=== PATIENT | female | born 1995 | race Caucasian/White ===

== ENCOUNTER → 2017-01-01 | Day surgery (SDC) | payer OTHER ==
[2017-01-01] VITALS (9 sets, daily range): BP systolic 98–109; BP diastolic 40–74; PULSE 57–69; TEMP 97.5
[~2017-01-01] VITALS: Ht 157.5 cm; Wt 46.9 kg
[~2017-01-01] MED LIST: NORCO 325 MG-51 TAB PO
[2017-01-01 15:41] LABS: BASO # 0.1 (0.0-0.2); BASO % 0.4 % (0.0-2.0); EOS # 0.4 (0.0-0.7); EOS % 2.6 % (0-4.0); GRAN # 9.8 (1.4-6.5); GRAN % 73.4 % (42.2-75.2); HEMATOCRIT 39.7 % (37.0-47.0); HEMOGLOBIN 13.7 g/dl (12.5-16.0); LYMPH # 2.5 (1.2-3.4); LYMPH % 18.4 % (20.0-51.0); MEAN CELL VOLUME 90 fl (80.0-100.0); MEAN CORPUSCULAR HEMOGLOBIN 31 pg (27.0-31.0); MEAN CORPUSCULAR HGB CONC 35 g/dl (33.0-37.0); MEAN PLATELET VOLUME 9.5 fl (7.4-10.4); MONO # 0.7 (0.1-0.6); MONO % 4.9 % (1.7-9.3); PLATELET COUNT 360 K/mm3 (130-400); WHITE BLOOD COUNT 13.3 K/mm3 (4.8-10.8)
[2017-01-01 15:46] LABS: PH 7 (5-8); URINE APPEARANCE Clear; URINE BACTERIA None Seen /hpf; URINE BILIRUBIN Negative (NEGATIVE); URINE BLOOD 1+ (NEGATIVE); URINE COLOR Yellow; URINE GLUCOSE Negative (NEGATIVE); URINE KETONE Negative (NEGATIVE); URINE UROBILINOGEN Negative (NEGATIVE)
[2017-01-01 15:58] LABS: ADJUSTED CALCIUM 9.2 mg/dL (8.4-10.2); ALBUMIN 5.1 gm/dL (3.5-5.0); BILIRUBIN,TOTAL 0.6 mg/dL (0.0-1.0); C-REACTIVE PROTEIN 0.8 mg/dL (0.0-0.9); CALCIUM 10.1 mg/dL (8.4-10.2); CREATININE, serum 0.67 mg/dL (0.52-1.25); POTASSIUM 3.8 mmol/L (3.4-5.0)
[2017-01-02 02:12] VITALS: BP 88/37; PULSE 56; TEMP 98.2
[2017-01-02 06:04] VITALS: BP 93/89; PULSE 57; TEMP 98
== END ==
LOC: COL.ER 14:02 → SURG 18:23 → COL.ER 18:23 → SDCO 18:23 → SURG 01-02 08:48
PROVIDERS: Nurse Practitioner
DX: K35.80 Unspecified acute appendicitis (principal)
CPT/HCPCS: J0330; J0690; J1100; J1170; J2405; J2704; J2710; J2765; J3010; J7030; J7120; Q9967

== ENCOUNTER 2021-10-21 07:29 | Day surgery (SDC) | payer BC ==
[2021-10-21] VITALS (7 sets, daily range): BP systolic 95–117; BP diastolic 49–73; PULSE 50–75; TEMP 97.6–97.8
[~2021-10-21] VITALS: Ht 157.5 cm; Wt 57.0 kg
--- NOTE | 2021-10-21 10:00 | NUR ---
PT TO BAY 7 PER CART FROM OR. RECEIVED REPORT FROM AIR CONDITIONING SERVICE TECHNICIAN AND RN SECURITY. VS OBATINED. PT REORIENTED TO ROOM AND CALL LIGHT. VERBALIZED UNDERSTANDING. LUNGS CTA. PT REQUESTING WATER TO DRINK. TOLERATING WATER WITHOUT DIFFICULTY. PT C/O CRAMPING. WILL CHECK ORDERS FOR MEDICATION. WILL CONTINUE TO MONITOR.
--- NOTE | 2021-10-21 10:15 | NUR ---
PT C/O CRAMPING. PT CONTINUES TO TOLERATE WATER. DENIES NEEDING ANYTHING AT THIS TIME.
--- NOTE | 2021-10-21 10:18 | NUR ---
TORADOL 30MG GIVEN [place] IV.
--- NOTE | 2021-10-21 10:30 | NUR ---
PT RESTING COMFORTABLY AT THIS TIME. PT STATED PAIN/CRAMPING IS BETTER AT THIS TIME. DENIES ANY NEEDS AT THIS TIME. WILL CONTINUE TO MONITOR PT.
--- NOTE | 2021-10-21 10:45 | NUR ---
PT CONTINUES TO REST COMFORTABLY. DENIES ANY NEEDS AT THIS TIME. WILL CONTINUE TO MONITOR PT.
--- NOTE | 2021-10-21 11:00 | NUR ---
PT RESTING COMFORTABLY. DENIES ANY NEEDS AT THIS TIME. WILL CONTINUE TO MONITOR.
--- NOTE | 2021-10-21 11:45 | NUR ---
PT TOLERATING DIET WITHOUT DIFFICULTY. NEEDING ORDERS FROM DR DEMARCO FOR DISCHARGE. WILL CONTINUE TO MONITOR.
--- NOTE | 2021-10-21 12:15 | NUR ---
ORDERS RECEIVED FROM DR DEMARCO. PT TO DISCHARGE TO HOME.
--- NOTE | 2021-10-21 12:25 | NUR ---
DISCHARGE EDUCATION COMPLETED WITH PT AND HER . PT VERBALIZED UNDERSTANDING OF HOME AND FOLLOW UP CARE. DISCHARGE PAPERWORK GIVEN TO PT. PT SIGNED PAPERWORK.
== END 2021-10-21 12:35 | disposition home or self-care (01) ==
LOC: SDCO 07:29
DX: O02.1 Missed abortion (principal); Z90.89 Acquired absence of other organs; Z79.899 Other long term (current) drug therapy
CPT/HCPCS: J1885; J2405; J2704; J3010; J7120

== ENCOUNTER 2024-03-18 13:03 | Observation (INO) | payer BC ==
[~2024-03-18] VITALS: Ht 157.5 cm; Wt 52.3 kg
[2024-03-18] VITALS (8 sets, daily range): BP systolic 88–98; BP diastolic 41–60; PULSE 56–63; TEMP 98.1
[~2024-03-18 13:03] MED LIST changes: +MOTRIN 800800 MG/TAB PO
[2024-03-18 13:58] LABS: BASO # 0.1 K/mm3 (0.0-0.2); BASO % 0.4 % (0.0-2.0); EOS # 0.1 K/mm3 (0.0-0.7); EOS % 0.7 % (0.0-4.0); GRAN # 10.7 K/mm3 (1.4-6.5); GRAN % 78.2 % (42.2-75.2); HEMATOCRIT 37.3 % (37.0-47.0); HEMOGLOBIN 12.5 g/dl (12.5-16.0); LYMPH # 2.2 K/mm3 (1.2-3.4); LYMPH % 16.4 % (20.0-51.0); MEAN CELL VOLUME 91 fl (80.0-100.0); MEAN CORPUSCULAR HEMOGLOBIN 31 pg (27-31); MEAN CORPUSCULAR HGB CONC 34 g/dl (33.0-37.0); MEAN PLATELET VOLUME 9.2 fl (7.4-10.4); MONO # 0.5 K/mm3 (0.1-0.6); PLATELET COUNT 360 K/mm3 (130-400); RED BLOOD COUNT 4.08 M/mm3 (4.10-5.30); REDCELL DISTRIBUTION WIDTH-CV 12.2 % (11.5-14.5)
[2024-03-18 14:12] LABS: INR 0.9 (0.8-3.0); PROTHROMBIN TIME 10.3 SECONDS (9.7-12.8)
[2024-03-18 14:14] LABS: ALBUMIN 4.3 g/dL (3.5-5.0); BILIRUBIN,TOTAL 0.5 mg/dL (0.2-1.2); CALCIUM 9.7 mg/dL (8.4-10.2); CREATININE, serum 0.77 mg/dL (0.57-1.11); POTASSIUM 3.9 mEq/L (3.5-4.5); TOTAL PROTEIN 7.4 g/dl (6.2-8.1)
[2024-03-18 14:15] LABS: PARTIAL THROMBOPLASTIN TIME 26.9 SECONDS (26.0-37.0)
[2024-03-18] MEDS ORDERED: NS 1,000 ML IV SCH (14:15)
[2024-03-18] MEDS ORDERED: Ondansetron 4 MG/2 ML VIAL ONE (14:35)
[2024-03-18] MEDS ORDERED: Ketorolac 30 MG/ML VIAL ONE (14:35)
[2024-03-18] MEDS ORDERED: fentaNYL 50 MCG/ML 2 ML VIAL ONE (14:35)
[2024-03-18] MEDS ORDERED: Lidocaine PF 2% (20 MG/ML) 5 ML VIAL ONE (14:36)
[2024-03-18] MEDS ORDERED: Ibuprofen 800 MG TAB PO PRN (15:30)
--- NOTE | 2024-03-18 15:49 | NUR ---
Pt arrives to floor via bed from pacu at 1535. Pt awake and alert, denies pain at this time. Recovery VS started. Pt provided water and saltine crackers per her request.
[2024-03-18] MEDS ORDERED: Ondansetron 4 MG/2 ML VIAL IV PRN (16:00)
[2024-03-18] MEDS ORDERED: LR 1,000 ML IV SCH (16:00)
[2024-03-18] MEDS ORDERED: Acetaminophen 500 MG TAB PO SCH (16:00)
[2024-03-18] MEDS ORDERED: oxyCODONE 5 MG TAB PO PRN (16:00)
[2024-03-18] MEDS ORDERED: Naloxone 0.4 MG/ML VIAL IV PRN (16:00)
--- NOTE | 2024-03-18 18:11 | NUR ---
Pt ambulated and voided, reports mild pain but refuses pain meds. Pt able to snack and drink water, minimal vaginal bleeding noted. Pt requests discharge. INT removed. Pt taken out to vehicle in wheelchair at 1800.
[2024-03-18] MEDS ORDERED: Docusate Sodium 100 MG CAP PO SCH (21:00)
[2024-03-18] MEDS ORDERED: Ibuprofen 800 MG TAB PO SCH (21:30)
== END 2024-03-18 18:00 | disposition home or self-care (01) ==
LOC: COL.ER 13:03 → OB 15:00
PROVIDERS: Emergency Medicine; ADMIT Obstetrics & Gynecology
DX: O03.4 Incomplete spontaneous abortion without complication (principal); Q51.810 Arcuate uterus
CPT/HCPCS: J1885; J2405; J2704; J2765; J3010; J7030